=== PATIENT | female | born 1990 | race Caucasian/White ===

== ENCOUNTER 2017-12-19 11:27 | Emergency (ER) | payer MEDICAID ==
[~2017-12-19] VITALS: Ht 162.6 cm; Wt 50.5 kg
[~2017-12-19 11:27] MED LIST: CITA40TA12 PO; ZOLP-413 PO
[2017-12-19] MEDS ORDERED: SODIUM CHLORIDE FLUSH 10ML SYR IVF ONE (14:30)
[2017-12-19 14:31] LABS: MICROSCOPIC NOT IND
[2017-12-19 14:32] LABS: CULTURE INDICATED? NO
[2017-12-19 14:42] LABS: BASOPHILS # (AUTO) 0.03 x10^3/uL (0-0.1); BASOPHILS % (AUTO) 0 % (0-1); EOSINOPHILS # (AUTO) 0.06 x10^3/uL (0-0.4); EOSINOPHILS % (AUTO) 1 % (1-7); LYMPHOCYTES # (AUTO) 3.25 x10^3/uL (1-3.4); LYMPHOCYTES % (AUTO) 31 % (22-44); MD NO; MEAN CORPUSCULAR HEMOGLOBIN 29.9 pg (27.0-34.8); MEAN CORPUSCULAR HGB CONC 33.3 g/dL (32.4-35.8); MEAN CORPUSCULAR VOLUME 89.6 fL (80-100); MONOCYTES # (AUTO) 0.49 x10^3/uL (0.2-0.8); MONOCYTES % (AUTO) 5 % (2-9); NEUTROPHILS # (AUTO) 6.78 x10^3/uL (1.8-6.8); NEUTROPHILS % (AUTO) 64 % (42-75); PLATELET COUNT 279 x10^3/uL (130-400); RED BLOOD COUNT 4.57 x10^6/uL (3.82-5.3); RED CELL DISTRIBUTION WIDTH 12.4 % (9.6-15.2)
[2017-12-19 14:54] LABS: ALANINE AMINOTRANSFERASE 20 U/L (12-78); ALBUMIN 3.8 g/dL (3.4-5.0); ANION GAP 7 mmol/L (5-15); CALCIUM 8.6 mg/dL (8.5-10.1); CHLORIDE 108 mmol/L (98-107); CREATININE 0.57 mg/dL (0.55-1.02)
[2017-12-19 15:12] LABS: ALKALINE PHOSPHATASE 53 U/L (45-117); BILIRUBIN,TOTAL 0.7 mg/dL (0.2-1.0); TOTAL PROTEIN 7.4 g/dL (6.4-8.2)
[2017-12-19 19:47] VITALS: BP 113/78
[2017-12-19] MEDS ORDERED: ACETAMINOPHEN 325 MG TABLET ONE (19:52)
[2017-12-19 20:29] VITALS: BP 121/84
== END 2017-12-19 20:32 | disposition home or self-care (01) ==
LOC: ED 19:50
DX: O26.891 Other specified pregnancy related conditions, first trimester (principal); R10.2 Pelvic and perineal pain; Z3A.01 Less than 8 weeks gestation of pregnancy
CPT/HCPCS: 36415; 76801; 80053; 81003; 84702; 85025; 86850; 86900; 99285; J2790

== ENCOUNTER 2018-06-01 19:03 | Emergency (ER) | payer MEDICAID ==
[~2018-06-01] VITALS: Ht 162.6 cm; Wt 50.4 kg
[2018-06-01] MEDS ORDERED: ACETAMINOPHEN 500 MG TABLET ONE (19:48)
[2018-06-01] MEDS ORDERED: ONDANSETRON 2MG/ML, 2ML ONE (19:48)
[2018-06-01 19:57] LABS: BASOPHILS # (AUTO) 0.01 x10^3/uL (0-0.1); BASOPHILS % (AUTO) 0 % (0-1); EOSINOPHILS # (AUTO) 0.01 x10^3/uL (0-0.4); EOSINOPHILS % (AUTO) 0 % (1-7); LYMPHOCYTES # (AUTO) 1.29 x10^3/uL (1-3.4); LYMPHOCYTES % (AUTO) 15 % (22-44); MD NO; MEAN CORPUSCULAR HEMOGLOBIN 31.1 pg (27.0-34.8); MEAN CORPUSCULAR HGB CONC 34.9 g/dL (32.4-35.8); MEAN CORPUSCULAR VOLUME 89.1 fL (80-100); MEAN PLATELET VOLUME 9.5 fL (7.4-10.4); MONOCYTES # (AUTO) 0.72 x10^3/uL (0.2-0.8); MONOCYTES % (AUTO) 8 % (2-9); NEUTROPHILS # (AUTO) 6.73 x10^3/uL (1.8-6.8); NEUTROPHILS % (AUTO) 77 % (42-75); PLATELET COUNT 229 x10^3/uL (130-400); RED BLOOD COUNT 4.28 x10^6/uL (3.82-5.3); RED CELL DISTRIBUTION WIDTH 12.3 % (9.6-15.2)
[2018-06-01] MEDS ORDERED: SODIUM CHLORIDE FLUSH 10ML SYR IVF ONE (20:00)
[2018-06-01] MEDS ORDERED: ONDANSETRON 2MG/ML, 2ML IVPush ONE (20:00)
[2018-06-01] MEDS ORDERED: ACETAMINOPHEN 500 MG TABLET PO ONE (20:00)
[2018-06-01] MEDS ORDERED: SODIUM CHLORIDE 0.9% 1,000ML IVBOLUS ONE (20:00)
[2018-06-01 20:02] LABS: MICROSCOPIC NOT IND
[2018-06-01 20:04] LABS: CULTURE INDICATED? NO
[2018-06-01 20:05] LABS: ALANINE AMINOTRANSFERASE 18 U/L (12-78); ALBUMIN 3.6 g/dL (3.4-5.0); ANION GAP 9 mmol/L (5-15); CALCIUM 8.3 mg/dL (8.5-10.1); CHLORIDE 108 mmol/L (98-107); CREATININE 0.73 mg/dL (0.55-1.02)
[2018-06-01 20:10] LABS: ALKALINE PHOSPHATASE 57 U/L (45-117); BILIRUBIN,TOTAL 0.3 mg/dL (0.2-1.0); TOTAL PROTEIN 7.5 g/dL (6.4-8.2)
[2018-06-01] MEDS ORDERED: KETOROLAC 30 MG/1 ML ONE (20:27)
[2018-06-01] MEDS ORDERED: POTASSIUM CHLORIDE 20 MEQ TAB.ER.PRT PO ONE (20:30)
[2018-06-01] MEDS ORDERED: KETOROLAC 30 MG/1 ML IVPush ONE (20:30)
[2018-06-01] MEDS ORDERED: POTASSIUM CHLORIDE 20 MEQ TAB.ER.PRT ONE (20:42)
[2018-06-01 21:38] VITALS: BP 103/68
[2018-06-01] MEDS ORDERED: MORPHINE SULFATE 4 MG/ML, 1ML ONE (21:47)
[2018-06-01] MEDS ORDERED: morphine SULFATE 10 MG/ML, 1ML IVPush ONE (22:00)
== END 2018-06-01 23:01 | disposition home or self-care (01) ==
LOC: ED 22:19
DX: R10.9 Unspecified abdominal pain (principal); R11.0 Nausea; R42 Dizziness and giddiness
CPT/HCPCS: 36415; 74176; 76830; 80053; 81003; 83690; 84703; 85025; 96361; 96374; 96375; 99285; J1885; J2270; J2405; J7030

== ENCOUNTER 2018-06-09 17:09 | Emergency (ER) | payer MEDICAID, OTHER ==
[~2018-06-09] VITALS: Ht 162.6 cm; Wt 48.5 kg
[2018-06-09] MEDS ORDERED: KETOROLAC 30 MG/1 ML ONE (17:47)
[2018-06-09 17:54] LABS: BASOPHILS # (AUTO) 0.03 x10^3/uL (0-0.1); BASOPHILS % (AUTO) 0 % (0-1); EOSINOPHILS # (AUTO) 0.15 x10^3/uL (0-0.4); EOSINOPHILS % (AUTO) 2 % (1-7); LYMPHOCYTES # (AUTO) 2.39 x10^3/uL (1-3.4); LYMPHOCYTES % (AUTO) 30 % (22-44); MD NO; MEAN CORPUSCULAR HEMOGLOBIN 30.6 pg (27.0-34.8); MEAN CORPUSCULAR HGB CONC 33.9 g/dL (32.4-35.8); MEAN CORPUSCULAR VOLUME 90.1 fL (80-100); MEAN PLATELET VOLUME 8.9 fL (7.4-10.4); MONOCYTES # (AUTO) 0.62 x10^3/uL (0.2-0.8); MONOCYTES % (AUTO) 8 % (2-9); NEUTROPHILS # (AUTO) 4.77 x10^3/uL (1.8-6.8); NEUTROPHILS % (AUTO) 60 % (42-75); PLATELET COUNT 328 x10^3/uL (130-400); RED BLOOD COUNT 4.84 x10^6/uL (3.82-5.3); RED CELL DISTRIBUTION WIDTH 12.2 % (9.6-15.2)
[2018-06-09] MEDS ORDERED: KETOROLAC 30 MG/1 ML IM ONE (18:00)
[2018-06-09 18:06] LABS: ALANINE AMINOTRANSFERASE 24 U/L (12-78); ALBUMIN 3.3 g/dL (3.4-5.0); ANION GAP 3 mmol/L (5-15); CALCIUM 7.9 mg/dL (8.5-10.1); CHLORIDE 108 mmol/L (98-107); CREATININE 0.61 mg/dL (0.55-1.02)
[2018-06-09 18:11] LABS: ALKALINE PHOSPHATASE 66 U/L (45-117); BILIRUBIN,TOTAL 0.4 mg/dL (0.2-1.0); TOTAL PROTEIN 7.3 g/dL (6.4-8.2)
[2018-06-09 19:02] LABS: MICROSCOPIC AUTO
[2018-06-09 19:08] LABS: CULTURE INDICATED? YES
[2018-06-09] MEDS ORDERED: OXYcodone/APAP 5/325MG TABLET PO ONE (19:30)
[2018-06-09] MEDS ORDERED: OXYcodone/APAP 5/325MG TABLET ONE (19:31)
[2018-06-09 19:34] VITALS: BP 101/64
== END 2018-06-09 19:59 | disposition home or self-care (01) ==
LOC: ED 19:05
DX: N80.3 Endometriosis of pelvic peritoneum (principal); F17.200 Nicotine dependence, unspecified, uncomplicated; R11.10 Vomiting, unspecified; R19.7 Diarrhea, unspecified; R63.0 Anorexia; Z87.442 Personal history of urinary calculi
CPT/HCPCS: 36415; 74021; 80053; 81001; 83690; 84703; 85025; 87086; 96372; 99285; J1885

== ENCOUNTER 2018-11-23 09:19 | Emergency (ER) | payer MEDICAID ==
[~2018-11-23] VITALS: Ht 162.6 cm; Wt 48.4 kg
[2018-11-23 09:21] VITALS: BP 104/75
[2018-11-23] MEDS ORDERED: DEXAMETHASONE 4 MG TABLET ONE (09:55)
[2018-11-23] MEDS ORDERED: IBUPROFEN 600 MG TABLET ONE (10:56)
[2018-11-23] MEDS ORDERED: IBUPROFEN 600 MG TABLET PO ONE (11:00)
[2018-11-23] MEDS ORDERED: DEXAMETHASONE 4 MG TABLET PO ONE (11:00)
[2018-11-23] MEDS ORDERED: CEFTRIAXONE 1,000 MG ONE (11:15)
[2018-11-23] MEDS ORDERED: CEFTRIAXONE 1,000 MG IM ONE (11:30)
== END 2018-11-23 11:47 | disposition home or self-care (01) ==
LOC: ED 11:35
DX: J15.9 Unspecified bacterial pneumonia (principal)
CPT/HCPCS: 71046; 87081; 87880; 93005; 96372; 99284; J0696

== ENCOUNTER 2019-01-29 11:01 | Emergency (ER) | payer MEDICAID ==
[~2019-01-29] VITALS: Ht 162.6 cm; Wt 49.0 kg
[2019-01-29 11:48] LABS: BASOPHILS # (AUTO) 0.03 x10^3/uL (0-0.1); BASOPHILS % (AUTO) 0 % (0-1); EOSINOPHILS # (AUTO) 0.13 x10^3/uL (0-0.4); EOSINOPHILS % (AUTO) 2 % (1-7); LYMPHOCYTES # (AUTO) 2.48 x10^3/uL (1-3.4); LYMPHOCYTES % (AUTO) 33 % (22-44); MD NO; MEAN CORPUSCULAR HEMOGLOBIN 30.6 pg (27.0-34.8); MEAN CORPUSCULAR HGB CONC 33.8 g/dL (32.4-35.8); MEAN CORPUSCULAR VOLUME 90.4 fL (80-100); MEAN PLATELET VOLUME 8.3 fL (7.4-10.4); MONOCYTES # (AUTO) 0.53 x10^3/uL (0.2-0.8); MONOCYTES % (AUTO) 7 % (2-9); NEUTROPHILS % (AUTO) 58 % (42-75); PLATELET COUNT 320 x10^3/uL (130-400); RED BLOOD COUNT 5.07 x10^6/uL (3.82-5.3); RED CELL DISTRIBUTION WIDTH 13.8 % (9.6-15.2)
[2019-01-29 11:58] LABS: ALANINE AMINOTRANSFERASE 27 U/L (12-78); ALBUMIN 4.2 g/dL (3.4-5.0); CALCIUM 9.2 mg/dL (8.5-10.1)
[2019-01-29 12:02] LABS: ALKALINE PHOSPHATASE 58 U/L (45-117); BILIRUBIN,TOTAL 0.7 mg/dL (0.2-1.0); TOTAL PROTEIN 7.8 g/dL (6.4-8.2)
[2019-01-29 12:43] LABS: ANION GAP 6 mmol/L (5-15); CHLORIDE 107 mmol/L (98-107)
--- NOTE | 2019-01-29 13:38 | NUR ---
PT TO ROOM FROM LOBBY. AMBULATES WITH STEADY GAIT.
[2019-01-29] MEDS ORDERED: MAALOX/HYOSCYAMINE/LIDOCAINE 45 ML BTL PO ONE (14:00)
[2019-01-29] MEDS ORDERED: KETOROLAC 30 MG/1 ML IM ONE (14:00)
[2019-01-29] MEDS ORDERED: FAMOTIDINE 20 MG TABLET PO ONE (14:00)
[2019-01-29] MEDS ORDERED: KETOROLAC 30 MG/1 ML ONE (14:22)
[2019-01-29] MEDS ORDERED: MAALOX/HYOSCYAMINE/LIDOCAINE 45 ML BTL ONE (14:22)
[2019-01-29] MEDS ORDERED: FAMOTIDINE 20 MG TABLET ONE (14:22)
[2019-01-29 15:02] LABS: MICROSCOPIC NOT IND
[2019-01-29 15:03] LABS: CULTURE INDICATED? NO
--- NOTE | 2019-01-29 15:03 | NUR ---
REPORT FROM CORBY LOU. PT SITTING UP IN [facility], NAD NOTED. BP/SPO2/ECG MONITORING IN PLACE. NSR ON MONITOR.
[2019-01-29 15:04] VITALS: BP 119/86
--- NOTE | 2019-01-29 15:05 | NUR ---
Provided report to CORBY Beatty. All questions answered.
--- NOTE | 2019-01-29 15:33 | NUR ---
DC EDUCATION PROVIDED, PT DEMONSTRATES UNDERSTANDING. PT AMBULATED STEADILY TO DC WITH RN
== END 2019-01-29 15:35 | disposition home or self-care (01) ==
LOC: ED 14:42
DX: K21.9 Gastro-esophageal reflux disease without esophagitis (principal); M94.0 Chondrocostal junction syndrome [Tietze]; F41.1 Generalized anxiety disorder; F17.200 Nicotine dependence, unspecified, uncomplicated
CPT/HCPCS: 36415; 71046; 80053; 81003; 83690; 84443; 84703; 85025; 86677; 93005; 96372; 99284; J1885